=== PATIENT | female | born 1950 | race Two or more races ===

== ENCOUNTER 2018-03-28 07:14 | Outpatient (CLI) | payer OTHER ==
[~2018-03-28 07:14] MED LIST: ADULT ASPIRIN81 MG; ALTACE10 MG; BACTROBAN OINT22 GM TP; HYDROCHLOROTH12.5 M1; SEPTRA DS TABLE1 TAB PO; SIMVASTATIN20 MG
== END 2018-03-28 07:29 | disposition home or self-care (01) ==
LOC: MAMO-SONO 07:14
DX: Z12.31 Encounter for screening mammogram for malignant neoplasm of breast (principal); Z87.898 Personal history of other specified conditions; N63.10 Unspecified lump in the right breast, unspecified quadrant; N63.20 Unspecified lump in the left breast, unspecified quadrant